=== PATIENT | male | born 1990 | race Two or more races ===

== ENCOUNTER 2020-08-07 17:15 | Emergency (ER) | payer SELFPAY ==
[~2020-08-07] VITALS: Ht 167.6 cm; Wt 61.2 kg
[2020-08-07 17:16] VITALS: BP 125/68
== END 2020-08-07 19:55 | disposition left against medical advice (07) ==
LOC: ER 17:15
DX: Z48.00 Encounter for change or removal of nonsurgical wound dressing (principal); Z53.21 Procedure and treatment not carried out due to patient leaving prior to being seen by health care provider